=== PATIENT | female | born 1975 | race Caucasian/White ===

== ENCOUNTER 2023-07-17 12:04 | Outpatient (CLI) | payer OTHER, SELFPAY ==
--- NOTE | 2023-07-17 13:25 | W.ANESCHARGE ---
Anesthesia Charges Start Date/Time Anesthesia Start Date: 07/17/23 Anesthesia Start Time: 13:00 Stop Date/Time Anesthesia Stop Date: 07/17/23 Anesthesia Stop Time: 13:22
== END 2023-07-17 12:05 | disposition home or self-care (01) ==
PROVIDERS: Visit Provider Internal Medicine Gastroenterology
DX: Z12.11 Encounter for screening for malignant neoplasm of colon (principal); Z85.038 Personal history of other malignant neoplasm of large intestine; Z15.09 Genetic susceptibility to other malignant neoplasm; Z86.010 Personal history of colon polyps
CPT/HCPCS: 00812; 45378; J2704